=== PATIENT | female | born 1985 | race Caucasian/White ===

== ENCOUNTER 2022-08-01 16:18 | Emergency (ER) | payer MEDICAID ==
[~2022-08-01] VITALS: Ht 163.8 cm; Wt 53.0 kg
[2022-08-01] MEDS ORDERED: ketorolac trometh inj. 60 MG/2 ML VIAL IM ONE (17:35)
--- NOTE | 2022-08-01 17:39 | NUR ---
FIRST CONTACT. PT IS AO4 NO S/S CONCUSSION. PT DID NOT PAS OUT. RESP EVEN UNLABORED. SKIN W/D/I PINK.
[2022-08-01] MEDS ORDERED: ketorolac trometh. 30mg/ml inj. IM ONE (17:40)
[2022-08-01 18:14] VITALS: BP 133/95
== END 2022-08-01 18:49 | disposition home or self-care (01) ==
LOC: ER 16:19
DX: M25.512 Pain in left shoulder (principal); F41.9 Anxiety disorder, unspecified; F31.9 Bipolar disorder, unspecified; F17.200 Nicotine dependence, unspecified, uncomplicated; Z98.51 Tubal ligation status; Z90.89 Acquired absence of other organs
CPT/HCPCS: 73030; 96372; 99283; J1885; A4565